=== PATIENT | male | born 1975 | race Caucasian/White ===

== ENCOUNTER 2017-09-24 11:33 | Emergency (ER) | payer SELFPAY ==
--- NOTE | 2017-09-24 12:23 | ERPHSYRPT ---
- History of Present Illness Time Seen by Provider: 09/24/17 12:03 Source: patient Exam Limitations: no limitations Patient Subjective Stated Complaint: pt reports hx of htn and has been off meds for kely 6 months-states that his pressure has been running high-occasionally he has ringing in ears-denies headache or pain or presure Triage Nursing Assessment: pt pink warm and [id number] easy and nonlabored- pupils reactive-moving all extremitities with ease and ambulaotry with no difficutly Physician History: The patient is a 42-year-old male who comes in complaining of ringing in his ears and high blood pressure. He has not had his blood pressure medicine for 6 months due to social issues such as divorce when he was living in [place]. He has now moved to the [facility] and does not have a doctor yet. He checked his blood pressure at [facility] today and found it to be 190/114. He was concerned and wanted to be seen. He tried quick care but was unable to be seen. All he wants is something for his blood pressure and to establish care with a doctor. His past medical history is significant for hypertension. Timing/Duration: today Severity: moderate Modifying Factors: Improves With: nothing Associated Symptoms: other (ringing in ears) Allergies/Adverse Reactions: No Known Drug Allergies Allergy (Unverified 09/24/17 11:49) Hx Tetanus, Diphtheria Vaccination/Date Given: No Hx Influenza Vaccination/Date Given: No Hx Pneumococcal Vaccination/Date Given: No Immunizations Up to Date: Yes - Review of Systems Constitutional: No Fever, No Chills Eyes: No Symptoms Ears, Nose, & Throat: Tinnitus Respiratory: No Cough, No Dyspnea Cardiac: No Chest Pain, No Edema, No Syncope Abdominal/Gastrointestinal: No Abdominal Pain, No Nausea, No Vomiting, No Diarrhea Genitourinary Symptoms: No Dysuria Musculoskeletal: No Back Pain, No Neck Pain Skin: No Rash Neurological: No Dizziness, No Focal Weakness, No Sensory Changes Psychological: No Symptoms Endocrine: No Symptoms Hematologic/Lymphatic: No Symptoms Immunological/Allergic: No Symptoms All Other Systems: Reviewed and Negative - Past Medical History Pertinent Past Medical History: Yes Cardiac History: Hypertension - Past Surgical History Past Surgical History: Yes Gastrointestinal: Appendectomy - Social History Smoking Status: Never smoker Exposure to second hand smoke: No Drug Use: none Patient Lives Alone: No - Nursing Vital Signs Nursing Vital Signs: Initial Vital Signs Temperature 98.1 F 09/24/17 11:46 Pulse Rate 84 09/24/17 11:46 Respiratory Rate 18 09/24/17 11:46 Blood Pressure 195/128 09/24/17 11:46 O2 Sat by Pulse Oximetry 96 09/24/17 11:46 Pain Scale Pain Intensity 0 - Physical Exam General Appearance: no apparent distress, alert Eye Exam: PERRL/EOMI, eyes nml inspection Ears, Nose, Throat Exam: normal ENT inspection, TMs normal, pharynx normal, moist mucous membranes Neck Exam: normal inspection, non-tender, supple, full range of motion Respiratory Exam: normal breath sounds, lungs clear, No respiratory distress Cardiovascular Exam: regular rate/rhythm, normal heart sounds, normal peripheral pulses Gastrointestinal/Abdomen Exam: soft, normal bowel sounds, No tenderness, No mass Rectal Exam: not done Back Exam: normal inspection, normal range of motion, No CVA tenderness, No vertebral tenderness Extremity Exam: normal inspection, normal range of motion, pelvis stable Neurologic Exam: alert, oriented x 3, cooperative, normal mood/affect, nml cerebellar function, nml station & gait, sensation nml, No motor deficits Skin Exam: normal color, warm, dry, No rash Lymphatic Exam: No adenopathy SpO2 Interpretation: normal SpO2: 96 Oxygen Delivery: Room Air - Progress Progress: unchanged Counseled pt/family regarding: diagnosis, need for follow-up - Departure Time of Disposition: 12:29 Departure Disposition: Home Clinical Impression: HTN (hypertension) Condition: Stable Critical Care Time: No Additional Instructions: You have hypertension. By systolic 10 mg daily and amlodipine 5 mg daily. You have a follow-up appointment on September 29, at 9:[address] Venu Larsen. Prescriptions: Amlodipine Besylate 5 mg PO DAILY #7 tablet Nebivolol HCl [Bystolic] 10 mg PO DAILY #7 tablet
[2017-09-24 12:36] VITALS: BP 180/123; PULSE 72; O2SAT 97
== END 2017-09-24 12:37 | disposition home or self-care (01) ==
LOC: ED 11:33
DX: I10 Essential (primary) hypertension (principal)
CPT/HCPCS: 99283